=== PATIENT | female | born 1995 | race Caucasian/White ===

== ENCOUNTER 2023-02-09 23:06 | Emergency (ER) | payer OTHER ==
[2023-02-09 23:13] VITALS: BP 126/73; PULSE 80; RESP 16; TEMP 98.4; BMI 30.2
[2023-02-09] MEDS ORDERED: IBUPROFEN 400 MG TABLET (FP) PO ONE (23:32)
[2023-02-09] MEDS ORDERED: DEXAMETHASONE SOD PHOSPHATE 10 MG/1 ML VIAL IM ONE (23:32)
[2023-02-10] MEDS ORDERED: AMOXICILLIN 500 MG CAPSULE (FP) PO ONE (00:01)
[2023-02-10] MEDS ORDERED: AMOXICILLIN 250 MG CAPSULE ONE (00:05)
[2023-02-10] MEDS ORDERED: DEXAMETHASONE SOD PHOSPHATE 10 MG/1 ML VIAL ONE (00:05)
[2023-02-10] MEDS ORDERED: IBUPROFEN 400 MG TABLET (FP) PO ONE (00:05)
== END 2023-02-10 00:36 | disposition home or self-care (01) ==
LOC: FER 23:06
PROC: 3E023GC Introduction of Other Therapeutic Substance into Muscle, Percutaneous Approach (ICD-10-PCS; principal; 2023-02-09)
DX: J02.9 Acute pharyngitis, unspecified (principal)
CPT/HCPCS: 81025; 84703; 87651; 99284-25; J1100